=== PATIENT | male | born 1975 | race Caucasian/White ===

== ENCOUNTER → 2017-06-13 | Emergency (ER) | payer MEDICAID ==
[~2017-06-13] VITALS: Ht 185.4 cm; Wt 86.2 kg
[~2017-06-13] MED LIST: ASPIR-LOW81 MG PO; LIPITOR40 MG PO; LISINOPRIL10 MG PO; NITROGLYCERIN0.4 MG SL
== END ==
LOC: ED 17:28
DX: F31.9 Bipolar disorder, unspecified (principal); R45.851 Suicidal ideations; I25.2 Old myocardial infarction; I10 Essential (primary) hypertension; E78.5 Hyperlipidemia, unspecified; F17.200 Nicotine dependence, unspecified, uncomplicated; Z88.6 Allergy status to analgesic agent; Z88.5 Allergy status to narcotic agent; Z88.8 Allergy status to other drugs, medicaments and biological substances; Z79.82 Long term (current) use of aspirin; Z79.899 Other long term (current) drug therapy
CPT/HCPCS: 80053; 80176; 81001; 84443; 85025; 99285; G0480

== ENCOUNTER 2017-06-14 11:59 | Emergency (ER) | payer MEDICAID ==
[~2017-06-14] VITALS: Ht 185.4 cm; Wt 86.2 kg
--- NOTE | 2017-06-14 14:25 | EKG ---
[facility] [address] [place], [place] [address] Signed Sinus tachycardia Otherwise normal ECG When compared with ECG of 02-AUG-2016 00:22, No significant change was found Confirmed by TIFFANY CRAWFORD MD ([id number]) on 06/14/2017 2:25:21 PM Electronically Signed By: TIFFANY CRAWFORD MD 06/14/17 1425 PATIENT NAME: MONICA CHARLES Electrocardiogram DATE OF : 71 PHYSICIAN: TIFFANY CRAWFORD MD REPORT #: [id number] REPORT IS CONFIDENTIAL AND NOT TO BE RELEASED WITHOUT AUTHORIZATION
== END 2017-06-14 16:29 | disposition home or self-care (01) ==
LOC: ED 11:59
DX: G43.909 Migraine, unspecified, not intractable, without status migrainosus (principal); I25.2 Old myocardial infarction; Z86.73 Personal history of transient ischemic attack (TIA), and cerebral infarction without residual deficits; E78.5 Hyperlipidemia, unspecified; I10 Essential (primary) hypertension; F17.200 Nicotine dependence, unspecified, uncomplicated; Z79.82 Long term (current) use of aspirin; Z79.899 Other long term (current) drug therapy; Z88.8 Allergy status to other drugs, medicaments and biological substances; Z88.5 Allergy status to narcotic agent; Z91.048 Other nonmedicinal substance allergy status
CPT/HCPCS: 70450; 70496; 70498; 71010; 80053; 84484; 85025; 85610; 85730; 93005; 93010; 96374; 96375; 99284; J1200; J2405; J2765; Q0163; Q3014; Q9967